=== PATIENT | female | born 1985 | race Caucasian/White ===

== ENCOUNTER 2017-01-16 20:01 | Emergency (ER) | payer OTHER ==
[2017-01-16 20:10] VITALS: BP 140/82
[2017-01-16] MEDS ORDERED: oxyCODONE/Acetamin 5/325 MG* TAB PO ONE ×2 (20:20→21:31)
--- NOTE | 2017-01-16 20:24 | ED ---
Lower Extremity - HPI Summary HPI Summary: 31F presents with right ankle pain. She was playing a roller derby game and fell and twisted her right ankle. She has not broke her right ankle before. She was able to bear weight afterwards with pain. She has taken ibuprofen for her pain. She denies any numbness or tingling. There is edema to the area. - History of Current Complaint Chief Complaint: EDExtremityLower Stated Complaint: RIGHT ANKLE INJURY Time Seen by Provider: 01/16/17 20:13 Pain Intensity: 5 - Allergies/Home Medications Allergies/Adverse Reactions: Allergies Allergy/AdvReac Type Severity Reaction Status Date / Time No Known Allergies Allergy Verified 11/06/14 23:18 PMH/Surg Hx/FS Hx/Imm Hx Endocrine/Hematology History: Denies: Hx Anticoagulant Therapy Cardiovascular History: Denies: Hx Hypertension Infectious Disease History: Denies: Traveled Outside the [place] in Last 30 Days - Family History Known Family History: Positive: Hypertension - Social History Alcohol Use: None Substance Use Type: Reports: None Smoking Status (MU): Never Smoked Tobacco Review of Systems Negative: Fever Negative: Chest Pain Negative: Shortness Of Breath Positive: Other - right ankle pain All Other Systems Reviewed And Are Negative: Yes Physical Exam Triage Information Reviewed: Yes Vital Signs On Initial Exam: Initial Vitals Temp Pulse Resp BP Pulse Ox 97.2 F 80 18 140/82 100 01/16/17 20:07 01/16/17 20:07 01/16/17 20:07 01/16/17 20:07 01/16/17 20:07 Vital Signs Reviewed: Yes Appearance: Positive: Well-Appearing Skin: Positive: Warm, Dry Head/Face: Positive: Normal Head/Face Inspection Eyes: Positive: Normal, Conjunctiva Clear Respiratory/Lung Sounds: Positive: Clear to Auscultation, Breath Sounds Present Cardiovascular: Positive: Normal, RRR Musculoskeletal: Positive: Limited @ - right ankel due to pain, Other - good pulses, capillary refill< 2 secs, tender over lateral aspect of ankle with edema , Procedures - Splinting Location: right ankle Hand-Made Type: fiberglass Splint: posterior walking Pre-Proc Neuro Vasc Exam: normal Post-Proc Neuro Vasc Exam: normal Diagnostics - Vital Signs Vital Signs Temp Pulse Resp BP Pulse Ox 01/16/17 20:07 97.2 F 80 18 140/82 100 - Laboratory Lab Statement: Any lab studies that have been ordered have been reviewed, and results considered in the medical decision making process. - Radiology ankle Xray Interpretation: Positive (See Comments) - IMPRESSION: SLIGHTLY DISPLACED OBLIQUELY ORIENTED FRACTURE INVOLVING THE DISTAL RIGHT FIBULA. Radiology Interpretation Completed By: Radiologist Lower Extremity Course/Dx - Course Course Of Treatment: 31F presents with right ankle pain today. She injuried it in a rollar derby incident. She denies any numbness or tingling. She has pain and edema to her right lateral ankle. Xray shows fibula fracture. placed in posterior walking splint. neurovascular intact afterwards. patient understands and agrees with plan - Diagnoses Differential Diagnosis/HQI/PQRI: Positive: Fracture (Closed), Sprain, Strain Provider Diagnoses: Right fibular fracture Discharge - Discharge Plan Condition: Good Disposition: HOME Prescriptions: oxyCODONE/Acetamin 5/325 MG* [Percocet 5/325 TAB*] 1 tab PO Q6H PRN #16 tab MDD 4 PRN Reason: Pain Patient Education Materials: Ankle Fracture (ED) Referrals: Brendon Gonzalez DO [Primary Care Provider] - Kaleb Rene MD [Medical Doctor] - Additional Instructions: Use crutches and stay nonweight bearing Keep splint on area and keep dry Call ortho office tomorrow to set up appointment for follow up Use ibuprofen for pain every 6 hours and use narcotic for breakthrough pain Ice, elevate Return to ED if develop numbness or tingling or any new or worsening symptoms
--- NOTE | 2017-01-16 21:01 | RAD ---
INDICATION: Right ankle pain after roller derby injury COMPARISON: None. TECHNIQUE: 3 views of the right ankle were obtained. FINDINGS: There is a minimally displaced obliquely oriented fracture at the distal right fibula. There is no definite asymmetric widening of the ankle mortise. The remaining visualized bones are intact and properly aligned. IMPRESSION: SLIGHTLY DISPLACED OBLIQUELY ORIENTED FRACTURE INVOLVING THE DISTAL RIGHT FIBULA.
== END 2017-01-16 21:47 | disposition home or self-care (01) ==
LOC: ED 20:01
DX: S82.401A Unspecified fracture of shaft of right fibula, initial encounter for closed fracture (principal); S99.911A Unspecified injury of right ankle, initial encounter; W19.XXXA Unspecified fall, initial encounter; Y93.9 Activity, unspecified; Y92.9 Unspecified place or not applicable
CPT/HCPCS: 99282; A9270-GY